=== PATIENT | male | born 1970 | race Caucasian/White ===

== ENCOUNTER 2020-03-01 14:13 | Outpatient (REF) | payer OTHER, SELFPAY ==
[2020-03-01 15:27] LABS: Anion Gap 13 (12-20); Blood Urea Nitrogen 16 mg/dL (9-16); Calcium 9.9 mg/dL (8.4-10.2); Carbon Dioxide 28 mmol/L (22-29); Chloride 106 mmol/L (96-108); Estimated Glomerular Filt Rate > 60; Glucose Random 87 mg/dL (60-115); Potassium 4.8 mmol/l (3.3-5.1); Sodium 142 mmol/L (135-145)
[2020-03-01 15:48] LABS: Erythrocyte Sedimentation Rate 5 MM/HR (0-15)
[2020-03-02 20:17] LABS: Lyme Abs Screen <0.90 index
[2020-03-03 13:11] LABS: Anti Nuclear Antibody Screen NEGATIVE (NEGATIVE)
== END 2020-03-01 14:14 | disposition home or self-care (01) ==
LOC: HO.LAB 14:13
PROVIDERS: Visit Provider Psychiatry & Neurology Neurology
DX: G71.00 Muscular dystrophy, unspecified (principal)
CPT/HCPCS: 36415; 80048; 82550; 85652; 86038; 86039; 86618

== ENCOUNTER → 2020-04-19 12:08 | Outpatient (REF) | payer OTHER, SELFPAY ==
--- NOTE | 2020-04-19 12:16 | CA_ITS ---
Transthoracic Echocardiogram Patient (Last, First, Middle): Usha Campos, Gender: Male Date of : 1970 Age: 49 Procedure Date: 04/19/2020 Procedure Type: Transthoracic Echocardiogram Location: OP Height: 182.88 cm Weight: 101.61 kg BSA: 2.24 m2 Heart Rate: bpm BP: 130 / 70 mmHg Refrigerating Machine Operator: Fabby MD: Petey Anderson MD Outpatient Scheduler: Gregory Bennett MD Symptoms: MYOTONIC MUSCULAR DYSTOPHY Study Quality: Good ECG Rhythm: Sinus Conclusions: - Essentially normal study Findings Left Ventricle Normal left ventricular size, thickness, and systolic function. The visually estimated ejection fraction is between 65-70%. Diastolic function is normal for age. Right Ventricle Normal right ventricular cavity size and systolic function. Atria Both atria are normal in size. There is no evidence of interatrial shunt. Aortic Valve Normal aortic valve structure and function. There is no aortic valve stenosis. There is no aortic valve regurgitation. Mitral Valve Normal mitral valve structure and function. There is trace mitral valve regurgitation. There is no mitral valve stenosis. Pulmonic Valve Normal pulmonic valve structure and function. There is trace pulmonic valve regurgitation. Tricuspid Valve Normal tricuspid valve structure. There is trace tricuspid valve regurgitation. The right ventricular systolic pressure is normal. The right ventricular systolic pressure is 37 mmHg. Normal right atrial pressure. There is no evidence of pulmonary hypertension. Great Vessels All visible segments of the aorta are normal in size. The pulmonary artery was not well visualized. Venous The inferior vena cava is normal in size and collapses greater than 50% with inspiration. Pericardium/Pleural There is no evidence of pericardial effusion. Prior Study Comparison No prior study available for comparison. Measurements 2D Linear Measurements RVIDd: 2.94 RVIDd Index: 1.31 IVSd: 0.90 0.6-0.9/0.6-1.0 cm LVIDd: 4.89 3.9-5.3/4.2-5.9 cm LVIDd Index: 2.18 2.4-3.2/2.2-3.1 cm/m2 LVIDs: 3.01 2.0-3.6 cm LVPWd: 1.23 0.7-1.1 cm Ao Root: 3.10 2.1-3.5 cm LA Diam: 3.60 2.7-3.8/3.0-4.0 cm LAIDs Index: 1.61 1.5-2.3 cm/m2 LV Mass: 238.03 67-162/88-224 g LV Mass Index: 106.26 43-95/49-115 g/m2 LVOT Diam: 2.40 3.0+(-)1.3 cm 2D Systolic Function EF 4C: 58.90 >55% EF 2C: 83.20 >55% EF BiP: 75.60 >55% Mitral Valve MV Pk E: 0.75 MV PK A: 0.53 MV Decel Time: 220.00 E/A: 1.40 E'Lateral: 9.46 E'Medial: 6.31 E/E' Med: 11.80 E/E' Lat: 7.90 Aortic Valve AoV Pk Kenneth: 1.23 AoV Mn Kenneth: 0.92 AoV VTI: 0.21 AoV Pk Grad: 6.00 Aov Mn Grad: 4.00 ARIANNA Cont.VTI: 5.05 LVOT LVOT Pk Kenneth: 0.98 LVOT Mn Kenneth: 0.73 LVOT VTI: 0.24 LVOT Pk Grad: 4.00 LVOT Mn Grad: 2.00 LVOT Diam: 2.40 LVOT Area: 4.52 Diastolic Function MV Pk E: 0.75 MV Pk A: 0.53 E/A: 1.40 E'Medial: 6.31 E/E' Med: 11.80 E' Laterial: 9.46 E/E' Lat: 7.90 Tricuspid Valve TR Pk Kenneth: 2.93 TR Pk Grad: 34.00 RA Press: 3.00 RVSP: 37.00 Great Vessels Aorta Ao Root-2D: 3.10 2.0-3.7 cm Ao Asc: 3.10 2.1-3.4 cm Ao Arch: 2.80 Updated in Other Vendor System with Status of Final Gregory Bennett MD electronically signed on 04/20/2020 4:30:50 PM with status of Final
== END ==
LOC: HO.CARD 12:08
PROVIDERS: Visit Provider Psychiatry & Neurology Neurology
DX: G71.11 Myotonic muscular dystrophy (principal)
CPT/HCPCS: 93306

== ENCOUNTER 2020-04-26 14:57 | Outpatient (REF) | payer OTHER, SELFPAY ==
[2020-04-26 15:23] LABS: MANUAL DIFF FLAG NO
[2020-04-26 15:37] LABS: Basophils Absolute Auto 0.1 X10*3/uL (0.0-0.2); Basophils Percent Auto 0.6 % (0-2); Eosinophils Absolute Auto 0.1 X10*3/uL (0.0-0.4); Hematocrit 53.3 % (42-52); Hemoglobin 16.7 g/dl (14.0-18.0); Imm Gran Abs Auto 0.03 X10*3/uL (0.00-0.03); Imm Gran Pct Auto 0.4 % (0.0-0.4); Lymphocytes Percent Auto 25.3 % (20-40); Mean Corpuscular HGB Conc 31.3 g/dl (31.0-36.0); Mean Corpuscular Hemoglobin 30.8 pg (27.0-33.0); Mean Corpuscular Volume 98.3 fL (80-98); Mean Platelet Volume 8.7 fL (9.4-12.4); Monocytes Absolute Auto 0.6 X10*3/uL (0.1-1.2); Monocytes Percent Auto 8.1 % (2-11); Neutrophils Percent Auto 64.6 % (45-73); Platelet Count 191 X10*3/uL (160-400); Red Blood Count 5.42 X10*6/uL (4.60-5.80); Red Cell Distribution Width 13.8 % (11.0-16.0); White Blood Count 7.7 X10*3/uL (4.8-10.8)
[2020-04-26 15:58] LABS: Alanine Aminotransferase 63 U/L (0-40); Albumin Level 4.4 g/dL (3.5-5.0); Alkaline Phosphatase 57 U/L (39-117); Anion Gap 14 (12-20); Aspartate Amino Transferase 42 U/L (5-37); Bilirubin Total 0.7 mg/dL (0.0-1.0); Blood Urea Nitrogen 12 mg/dL (9-16); C Reactive Protein 0.47 mg/dL (< or = 0.50); Calcium 9.5 mg/dL (8.4-10.2); Carbon Dioxide 29 mmol/L (22-29); Chloride 106 mmol/L (96-108); Cholesterol 245 mg/dL; Estimated Glomerular Filt Rate > 60; Glucose Random 87 mg/dL (60-115); Potassium 4.9 mmol/l (3.3-5.1); Sodium 144 mmol/L (135-145); Total Protein 6.6 g/dL (6.5-8.0)
[2020-04-26 16:12] LABS: Rheumatoid Factor < 15.0 IU/mL (<15.0)
[2020-04-26 16:15] LABS: Free T4 (Free Thyroxine) 0.96 ng/dL (0.71-1.85); Prostate Specific Antigen Scr 0.54 ng/mL (<0.05-4.0); Thyroid Stimulating Hormone 0.77 uIU/mL (0.32-4.0); Vitamin D 25-OH Total 29.4 ng/mL (>30)
[2020-04-26 16:19] LABS: Vitamin B12 663 pg/mL (200-900)
[2020-04-27 13:53] LABS: Anti Nuclear Antibody Screen NEGATIVE (NEGATIVE)
== END 2020-04-26 14:58 | disposition home or self-care (01) ==
LOC: HO.LAB 14:57
PROVIDERS: PCP Internal Medicine; Visit Provider Internal Medicine
DX: Z00.00 Encounter for general adult medical examination without abnormal findings (principal); Z13.220 Encounter for screening for lipoid disorders; Z13.29 Encounter for screening for other suspected endocrine disorder; Z12.5 Encounter for screening for malignant neoplasm of prostate
CPT/HCPCS: 36415; 80053; 82306; 82465; 82550; 82607; 84153; 84439; 84443; 85025; 86038; 86039; 86140; 86431

== ENCOUNTER 2020-10-04 07:14 | Outpatient (REF) | payer OTHER, SELFPAY ==
[2020-10-04 08:40] LABS: MANUAL DIFF FLAG NO
[2020-10-04 08:44] LABS: Basophils Percent Auto 0.6 % (0-2); Eosinophils Absolute Auto 0.1 X10*3/uL (0.0-0.4); Eosinophils Percent Auto 1.5 % (0-4); Hematocrit 53.4 % (42-52); Hemoglobin 17.1 g/dl (14.0-18.0); Imm Gran Abs Auto 0.02 X10*3/uL (0.00-0.03); Imm Gran Pct Auto 0.3 % (0.0-0.4); Lymphocytes Absolute Auto 1.9 X10*3/uL (1.2-4.9); Mean Corpuscular Hemoglobin 31.1 pg (27.0-33.0); Mean Corpuscular Volume 97.1 fL (80-98); Mean Platelet Volume 8.6 fL (9.4-12.4); Monocytes Absolute Auto 0.5 X10*3/uL (0.1-1.2); Monocytes Percent Auto 8.1 % (2-11); Neutrophils Percent Auto 60.5 % (45-73); Platelet Count 204 X10*3/uL (160-400); Red Cell Distribution Width 13.4 % (11.0-16.0); White Blood Count 6.6 X10*3/uL (4.8-10.8)
[2020-10-04 09:04] LABS: Alanine Aminotransferase 69 U/L (0-40); Albumin Level 4.3 g/dL (3.5-5.0); Alkaline Phosphatase 54 U/L (39-117); Anion Gap 14 (12-20); Aspartate Amino Transferase 50 U/L (5-37); Bilirubin Total 0.7 mg/dL (0.0-1.0); Blood Urea Nitrogen 17 mg/dL (9-16); Carbon Dioxide 29 mmol/L (22-29); Chloride 105 mmol/L (96-108); Estimated Glomerular Filt Rate > 60; Glucose Random 90 mg/dL (60-115); Potassium 4.3 mmol/L (3.3-5.1); Sodium 144 mmol/L (135-145); Total Protein 6.1 g/dL (6.5-8.0)
[2020-10-04 14:20] LABS: Cholesterol 251 mg/dL; HDL Cholesterol 47 mg/dL; LDL Cholesterol Calculated 153 mg/dl; Triglycerides 257 mg/dL
== END 2020-10-04 07:15 | disposition home or self-care (01) ==
LOC: HO.LAB 07:14
PROVIDERS: PCP Internal Medicine; Visit Provider Internal Medicine
DX: E78.00 Pure hypercholesterolemia, unspecified (principal); I10 Essential (primary) hypertension; R79.89 Other specified abnormal findings of blood chemistry
CPT/HCPCS: 36415; 80053; 80061; 85025

== ENCOUNTER 2021-01-31 06:39 | Outpatient (REF) | payer OTHER, SELFPAY ==
[2021-01-31 09:18] LABS: Alanine Aminotransferase 45 U/L (0-40); Albumin Level 4.3 g/dL (3.5-5.0); Alkaline Phosphatase 64 U/L (39-117); Anion Gap 11 (12-20); Aspartate Amino Transferase 38 U/L (5-37); Bilirubin Total 0.9 mg/dL (0.0-1.0); Blood Urea Nitrogen 15 mg/dL (9-16); C Reactive Protein 0.75 mg/dL (< or = 0.50); Calcium 9.7 mg/dL (8.4-10.2); Carbon Dioxide 29 mmol/L (22-29); Chloride 109 mmol/L (96-108); Cholesterol 227 mg/dL; Estimated Glomerular Filt Rate > 60; Glucose Fasting 86 mg/dL (60-99); HDL Cholesterol 47 mg/dL; LDL Cholesterol Calculated 143 mg/dl; Potassium 4.6 mmol/L (3.3-5.1); Sodium 144 mmol/L (135-145); Total Protein 6.5 g/dL (6.5-8.0); Triglycerides 186 mg/dL
== END 2021-01-31 06:40 | disposition home or self-care (01) ==
LOC: HO.LAB 06:39
PROVIDERS: PCP Internal Medicine; Visit Provider Internal Medicine
DX: E78.00 Pure hypercholesterolemia, unspecified (principal); D64.9 Anemia, unspecified; G71.00 Muscular dystrophy, unspecified
CPT/HCPCS: 36415; 80053; 80061; 82550; 84153; 86140

== ENCOUNTER 2021-05-02 07:07 | Outpatient (REF) | payer OTHER, SELFPAY ==
--- NOTE | ~2021-05-02 | XR_ITS ---
EXAMINATION: XR CHEST CLINICAL INFORMATION: Dyspnea COMPARISON: None TECHNIQUE: 2 views of the chest were obtained. FINDINGS: The cardiac and mediastinal contours are normal. The lung volumes are low. There is slight elevation of the right hemidiaphragm. There is question of bronchial wall thickening at both lung bases. There is bilateral subsegmental atelectasis. There is question of a small right base pneumonia. There is no pleural effusion or pneumothorax. Bony structures are unremarkable. XR/XR chest 2V IMPRESSION: Low lung volumes and bronchial wall thickening. Question small right base pneumonia.
== END 2021-05-02 07:08 | disposition home or self-care (01) ==
LOC: HO.XRAY 07:07
PROVIDERS: PCP Internal Medicine; Visit Provider Psychiatry & Neurology Neurology
DX: R06.00 Dyspnea, unspecified (principal); G71.11 Myotonic muscular dystrophy
CPT/HCPCS: 71046

== ENCOUNTER 2021-09-05 15:26 | Outpatient (REF) | payer OTHER, SELFPAY ==
[2021-09-05 15:40] LABS: MANUAL DIFF FLAG NO
[2021-09-05 16:20] LABS: Basophils Percent Auto 0.4 % (0-2); Eosinophils Absolute Auto 0.1 X10*3/uL (0.0-0.4); Eosinophils Percent Auto 1.1 % (0-4); Hematocrit 52.2 % (42.0-52.0); Hemoglobin 16.2 g/dl (14.0-18.0); Imm Gran Abs Auto 0.02 X10*3/uL (0.00-0.03); Imm Gran Pct Auto 0.3 % (0.0-0.4); Lymphocytes Absolute Auto 1.8 X10*3/uL (1.2-4.9); Lymphocytes Percent Auto 23.1 % (20-40); Mean Corpuscular Hemoglobin 29.9 pg (27.0-33.0); Mean Corpuscular Volume 96.3 fL (80.0-98.0); Mean Platelet Volume 8.8 fL (9.4-12.4); Monocytes Absolute Auto 0.6 X10*3/uL (0.1-1.2); Monocytes Percent Auto 7.5 % (2-11); Neutrophils Absolute Auto 5.1 x10*3/uL (2.0-8.3); Neutrophils Percent Auto 67.6 % (45-73); Platelet Count 172 X10*3/uL (160-400); Red Blood Count 5.42 X10*6/uL (4.60-5.80); Red Cell Distribution Width 13.6 % (11.0-16.0); White Blood Count 7.6 X10*3/uL (4.8-10.8)
[2021-09-05 16:45] LABS: Alanine Aminotransferase 45 U/L (0-40); Albumin Level 4.1 g/dL (3.5-5.0); Alkaline Phosphatase 59 U/L (39-117); Anion Gap 11 (12-20); Aspartate Amino Transferase 34 U/L (5-37); Bilirubin Total 0.8 mg/dL (0.0-1.0); Blood Urea Nitrogen 12 mg/dL (9-16); C Reactive Protein 0.61 mg/dL (< or = 0.50); Carbon Dioxide 32 mmol/L (22-29); Chloride 106 mmol/L (96-108); Cholesterol 254 mg/dL; Estimated Glomerular Filt Rate > 60; Glucose Random 74 mg/dL (60-115); Magnesium 2.1 mg/dL (1.6-2.6); Potassium 4.6 mmol/L (3.3-5.1); Sodium 144 mmol/L (135-145); Total Protein 6.2 g/dL (6.5-8.0)
== END 2021-09-05 15:27 | disposition home or self-care (01) ==
LOC: HO.LAB 15:26
PROVIDERS: PCP Internal Medicine; Visit Provider Internal Medicine
DX: R79.89 Other specified abnormal findings of blood chemistry (principal); G47.33 Obstructive sleep apnea (adult) (pediatric); E78.00 Pure hypercholesterolemia, unspecified; G71.00 Muscular dystrophy, unspecified
CPT/HCPCS: 36415; 80053; 82465; 82550; 83735; 85025; 86140

== ENCOUNTER 2021-10-11 07:28 | Outpatient (REF) | payer OTHER, SELFPAY ==
[2021-10-11 08:46] LABS: Cholesterol 218 mg/dL; HDL Cholesterol 45 mg/dL; LDL Cholesterol Calculated 140 mg/dl; Triglycerides 165 mg/dL
[2021-10-15 13:41] LABS: Calcium (PTHI) 9.6 mg/dL (8.6-10.3); PTHI 41 pg/mL (16-77)
== END 2021-10-11 07:29 | disposition home or self-care (01) ==
LOC: HO.LAB 07:28
PROVIDERS: PCP Internal Medicine; Visit Provider Internal Medicine
DX: E78.00 Pure hypercholesterolemia, unspecified (principal); E83.52 Hypercalcemia
CPT/HCPCS: 36415; 80061; 83970

== ENCOUNTER 2021-11-19 08:54 | Outpatient (REF) | payer OTHER, SELFPAY ==
[2021-11-19 10:31] LABS: Cholesterol 227 mg/dL; HDL Cholesterol 47 mg/dL; LDL Cholesterol Calculated 135 mg/dl; Triglycerides 228 mg/dL
== END 2021-11-19 08:55 | disposition home or self-care (01) ==
LOC: HO.LAB 08:54
PROVIDERS: PCP Internal Medicine; Visit Provider Internal Medicine
DX: E78.00 Pure hypercholesterolemia, unspecified (principal)
CPT/HCPCS: 36415; 80061

== ENCOUNTER 2022-01-18 07:52 | Outpatient (REF) | payer OTHER, SELFPAY ==
[2022-01-18 10:00] LABS: Cholesterol 218 mg/dL; HDL Cholesterol 46 mg/dL; LDL Cholesterol Calculated 147 mg/dl; Triglycerides 126 mg/dL
== END 2022-01-18 07:53 | disposition home or self-care (01) ==
LOC: HO.LAB 07:52
PROVIDERS: PCP Internal Medicine; Visit Provider Internal Medicine
DX: E78.00 Pure hypercholesterolemia, unspecified (principal)
CPT/HCPCS: 36415; 80061

== ENCOUNTER 2022-05-14 09:37 | Outpatient (REF) | payer OTHER, SELFPAY ==
[2022-05-14 10:34] LABS: Anion Gap 13 (12-20); Blood Urea Nitrogen 14 mg/dL (9-16); Calcium 9.9 mg/dL (8.4-10.2); Carbon Dioxide 27 mmol/L (22-29); Chloride 108 mmol/L (96-108); Estimated Glomerular Filt Rate > 60; Glucose Random 94 mg/dL (60-115); Potassium 4.1 mmol/L (3.3-5.1); Sodium 144 mmol/L (135-145)
[2022-05-14 10:38] LABS: Alanine Aminotransferase 96 U/L (0-40); Aspartate Amino Transferase 48 U/L (5-37)
[2022-05-14 10:40] LABS: ABG Refer to POC result
[2022-05-14 10:41] LABS: ABG pCO2 35 mmHg (32-45); ABG pH 7.39 (7.35-7.45); ABG pO2 91 mmHg (83-108)
[2022-05-14 10:42] LABS: ABG Base Excess -1.9 mmol/L; ABG HCO3 22 mmol/L (22-26)
== END 2022-05-14 09:38 | disposition home or self-care (01) ==
LOC: HO.LAB 09:37
PROVIDERS: Internal Medicine Pulmonary Disease; PCP Internal Medicine; Visit Provider Internal Medicine
DX: G71.00 Muscular dystrophy, unspecified (principal); E78.00 Pure hypercholesterolemia, unspecified
CPT/HCPCS: 36415; 80048; 82550; 82803; 84450; 84460

== ENCOUNTER 2022-07-09 13:55 | Outpatient (REF) | payer OTHER, SELFPAY ==
--- NOTE | 2022-07-09 14:00 | PFT_ITS ---
FLOWS: FEV1 46% of predicted at 1.75 L. FVC 42% of predicted at 2.06 L. FEV1 to FVC ratio 0.85. No bronchodilator response. LUNG VOLUMES: Total lung capacity 57% of predicted at 3.90 L. Residual volume 90% of predicted at 1.84 L. Slow vital capacity 43% of predicted at 2.06 L. Expiratory reserve volume 17% of predicted at 0.25 L. Diffusion capacity is moderately decreased, diffusion capacity corrects to normal after adjustment for alveolar ventilation. IMPRESSION: Severe restrictive ventilatory defect with no bronchodilator response. Decreased expiratory reserve volume suggests extrathoracic restriction, likely secondary to abdominal obesity. Aren Michael MD AP/MODL / [id number]
== END 2022-07-09 13:56 | disposition home or self-care (01) ==
LOC: HO.RESP 13:55
PROVIDERS: PCP Internal Medicine; Visit Provider Internal Medicine Pulmonary Disease
DX: G71.00 Muscular dystrophy, unspecified (principal)
CPT/HCPCS: 94060; 94727; 94729

== ENCOUNTER 2022-08-20 07:56 | Outpatient (REF) | payer OTHER, SELFPAY ==
[2022-08-20 08:09] LABS: MANUAL DIFF FLAG NO
[2022-08-20 08:33] LABS: Basophils Absolute Auto 0.1 X10*3/uL (0.0-0.2); Basophils Percent Auto 0.6 % (0-2); Eosinophils Absolute Auto 0.2 X10*3/uL (0.0-0.4); Eosinophils Percent Auto 1.9 % (0-4); Hematocrit 50.7 % (42.0-52.0); Imm Gran Abs Auto 0.03 X10*3/uL (0.00-0.03); Imm Gran Pct Auto 0.4 % (0.0-0.4); Lymphocytes Absolute Auto 1.4 X10*3/uL (1.2-4.9); Lymphocytes Percent Auto 18.5 % (20-40); Mean Corpuscular HGB Conc 31.6 g/dl (31.0-36.0); Mean Corpuscular Hemoglobin 30.8 pg (27.0-33.0); Mean Corpuscular Volume 97.7 fL (80.0-98.0); Monocytes Absolute Auto 0.6 X10*3/uL (0.1-1.2); Monocytes Percent Auto 7.7 % (2-11); Neutrophils Absolute Auto 5.5 x10*3/uL (2.0-8.3); Neutrophils Percent Auto 70.9 % (45-73); Platelet Count 179 X10*3/uL (160-400); Red Blood Count 5.19 X10*6/uL (4.60-5.80); Red Cell Distribution Width 13.7 % (11.0-16.0); White Blood Count 7.8 X10*3/uL (4.8-10.8)
[2022-08-20 09:08] LABS: Alanine Aminotransferase 45 U/L (0-40); Alkaline Phosphatase 65 U/L (39-117); Anion Gap 14 (12-20); Aspartate Amino Transferase 34 U/L (5-37); Bilirubin Total 0.7 mg/dL (0.0-1.0); Blood Urea Nitrogen 10 mg/dL (9-16); Calcium 9.5 mg/dL (8.4-10.2); Carbon Dioxide 28 mmol/L (22-29); Chloride 109 mmol/L (96-108); Cholesterol 254 mg/dL; Estimated Glomerular Filt Rate > 60; Glucose Fasting 86 mg/dL (60-99); HDL Cholesterol 48 mg/dL; LDL Cholesterol Calculated 166 mg/dl; Potassium 4.5 mmol/L (3.3-5.1); Sodium 146 mmol/L (135-145); Triglycerides 201 mg/dL
== END 2022-08-20 07:57 | disposition home or self-care (01) ==
LOC: HO.LAB 07:56
PROVIDERS: PCP Internal Medicine; Visit Provider Internal Medicine
DX: E78.00 Pure hypercholesterolemia, unspecified (principal); J45.909 Unspecified asthma, uncomplicated; R79.89 Other specified abnormal findings of blood chemistry
CPT/HCPCS: 36415; 80053; 80061; 85025

== ENCOUNTER → 2022-09-24 14:44 | Outpatient (BNVA) | payer OTHER, SELFPAY | PROVIDERS: PCP Internal Medicine; Visit Provider Internal Medicine Pulmonary Disease ==

== ENCOUNTER 2023-03-25 13:39 | Outpatient (AMB) | payer OTHER, SELFPAY ==
[2023-03-25 13:40] VITALS: BP 122/66; PULSE 56; O2SAT 95; BMI 29.4
--- NOTE | 2023-03-25 13:40 | MHC.OFFVIS ---
Intake Vital Signs 03/25/23 13:40 Height 5 ft 11 in Weight 210 lb 8.663 oz BMI 29.4 BP 122/66 Blood Pressure Location Rt brachial Position Sitting Pulse 56 Pulse Source Doppler Pulse Oximetry (%) 95 Oxygen Delivery Method Room Air Intake Visit Reasons: Dyspnea Allergies No Known Allergies Allergy (Verified 03/25/23 13:46) HPI Dyspnea HPI Details 52-year-old gentleman, nonsmoker, followed for asthma, now on generic Advair and Spiriva.? Underlying diagnosis of muscular dystrophy type 1. He is FVC has been stable. He denies any recent exacerbations. [facility] Social History (Updated 03/25/23 @ 13:46 by Marylu Hoover [facility]) Patient Tobacco Use Status: Never used Tobacco Review of Systems Const Denies daytime sleepiness, Denies excessive sweating, Denies fatigue, Denies fever(s), Denies lethargy, Denies malaise, Denies night sweats, Denies snoring and Denies weight loss Eyes Denies blurry vision and Denies itchy eyes ENT Denies nasal congestion, Denies post nasal drip, Denies sinus pain, Denies sinus pressure and Denies other ( Thrush) Card Denies chest pain, Denies pedal edema, Denies dyspnea, Denies orthopnea and Denies paroxysmal nocturnal dyspnea Resp Denies cough, Denies hemoptysis, Denies excessive phlegm production, Denies dyspnea, Denies snoring and Denies wheezing GI Denies abdominal pain and Denies heartburn Musc Denies myalgias, Denies arthralgias and Denies joint swelling Skin/Breast Denies rash Neuro Denies memory loss and Denies seizure-like activity Psych Denies abnormal sleep pattern, Denies anxiety and Denies memory loss Endo Denies excessive sweating, Denies fatigue and Denies heat intolerance Migel/Lymph Denies easy bruising Aller/Immun Denies itchy eyes, Denies seasonal rhinorrhea and Denies wheezing Physical Exam Vital Signs: Last Vital Signs Pulse 56 03/25/23 13:40 BP 122/66 03/25/23 13:40 Pulse Ox 95 03/25/23 13:40 Oxygen Delivery Method Room Air 03/25/23 13:40 BMI result Body Mass Index 29.4 Const General: no acute distress and alert Nutritional Appearance: not obese Orientation/consciousness: Other orientation findings ( oriented) HEENT Head: Yes atraumatic Eyes General: appearance normal, both eyes and all related structures Sclerae: sclerae normal EOM: EOMs intact bilaterally Neck Neck: Yes supple Lymphatic: no lymphadenopathy noted Resp Effort & Inspection: normal respiratory effort and no use of accessory muscles Auscultation: clear to auscultation bilaterally Cardio Rate: regular rate Rhythm: regular rhythm Heart sounds: no gallops, no murmurs and no rubs Skin General skin exam: other ( warm) Extrem General: No clubbing, No cyanosis and No edema Assessment & Plan Assessment & Plan (1) Asthma: Code(s): J45.909 - Unspecified asthma, uncomplicated Plan: Well controlled on generic Advair and Spiriva. Continue current regimen. (2) Muscular dystrophy: Code(s): G71.00 - Muscular dystrophy, unspecified Plan: Stable FVC. Continue to monitor clinically. Coding Level of Care Code Est Pt Level 4 (63333) Diagnoses Asthma J45.909 Muscular dystrophy G71.00
== END 2023-03-25 14:23 | disposition home or self-care (01) ==
PROVIDERS: PCP Internal Medicine; Visit Provider Internal Medicine Pulmonary Disease
DX: J45.909 Unspecified asthma, uncomplicated (principal); G71.00 Muscular dystrophy, unspecified
CPT/HCPCS: 99214

== ENCOUNTER → 2023-03-25 13:39 | Outpatient (BNVA) | payer OTHER, SELFPAY | PROVIDERS: Visit Provider Internal Medicine Pulmonary Disease ==

== ENCOUNTER 2023-04-01 11:14 | Day surgery (SDC) | payer OTHER, SELFPAY ==
[2023-03-30 14:50] VITALS: BMI 29.4
--- NOTE | 2023-03-31 08:31 | P.CONAN_ITS ---
Documented by User: Joselin Hall NP 03/31/23 08:31 HPI - Anesthesia Eval Consult details Narrative: 52yo M for Colonoscopy PMFSH Active Problems Active Problems: All Active Problems (Updated 03/30/23 @ 14:49 by Tia Goel RN) Asthma (Acute) Muscular dystrophy (Acute) Past Medical History Medical History Muscular dystrophy Elevated cholesterol Asthma Surgical History Surgical History History of surgery on lower extremity Social History Social History Patient Tobacco Use Status: Never used Tobacco Second Hand Smoke Exposure: No Use of substances other than those prescribed or required for medical reasons: No Are you DNR?: No Advance Directives: No Advance Directives Information Provided: Yes Advance Directives on File: No Meds Allergies Allergy/AdvReac Type Severity Reaction Status Date / Time No Known Allergies Allergy Verified 03/25/23 13:46 Home Medications Medication Instructions Recorded Confirmed Last Taken Type pravastatin 10 mg tablet 10 mg PO BEDTIME 03/26/22 03/30/23 Unknown History tadalafil 5 mg tablet mg PO 03/26/22 Unknown History tiotropium bromide 1.25 2 puff inhalation DAILY 03/26/22 03/30/23 04/01/23 History mcg/actuation mist for inhalation (Spiriva Respimat) Exam Exam Date and Time: March 31, 2023 0831 Height,Weight and Vital Signs: Height 5 ft 11 in Weight 95.708 kg Assessment and Plan Assessment Anesthesia Assessment: Chart Reviewed Documented by User: Fawn Hernandez MD 04/01/23 14:31 HPI - Anesthesia Eval Consult details Narrative: 52yo M for Colonoscopy. H/o muscular dystrophy diagnosed in 2019. Sees Dr Schwarz.No cardiac or respiratory issues as per cardiology6 and Respiratory consults. Clumsiness with occasional falls. Last fall that he can remember was last year. Woke up March 16 with swelling of left side of face and head. Denies any falls. Went to work and was told by coworkers to have checked out. Was seen at [facility]- Questioned trauma which patient denied. CT head showed small right subdural hematomas and anterior falx hematoma and Left fronto- parietal subarachnoid hemorrhage. GCS 15. Repeat CT did not show any increase in bleeding and patient was discharged home. No issues since. Some headache when seen in ER but not since. No nausea or vomiting. Denies any loss of consciusness at any time. Interval Note: Swelling almost totally gone. No symptoms. Will proceed with Colonoscopy [facility] Past Medical History Medical History Muscular dystrophy Elevated cholesterol Asthma Family History Family history of problems with anesthesia: No Surgical History Surgical History History of surgery on lower extremity History of Problems with Anesthesia: No Social History Social History Patient Tobacco Use Status: Never used Tobacco Second Hand Smoke Exposure: No Use of substances other than those prescribed or required for medical reasons: No Are you DNR?: No Advance Directives: No Advance Directives Information Provided: Yes Advance Directives on File: No Meds Allergies Allergy/AdvReac Type Severity Reaction Status Date / Time No Known Allergies Allergy Verified 03/25/23 13:46 Home Medications Medication Instructions Recorded Confirmed Last Taken Type pravastatin 10 mg tablet 10 mg PO BEDTIME 03/26/22 03/30/23 Unknown History tadalafil 5 mg tablet mg PO 03/26/22 Unknown History tiotropium bromide 1.25 2 puff inhalation DAILY 03/26/22 03/30/23 04/01/23 History mcg/actuation mist for inhalation (Spiriva Respimat) Exam Height,Weight and Vital Signs: Height 5 ft 11 in Weight 95.708 kg Vital Signs Temp Pulse Resp BP Pulse Ox O2 Del Method 04/01/23 11:51 97.2 F 58 16 138/76 96 Room Air Airway Mallampati Class: II TM Dist: >3cm Neck ROM: Full Partial: Upper (Bridge fell out after a fall and could not be replaced) Loose/Missing/Broken Teeth: Yes (Missing teeth. Denies broken or loose teeth) Heart: RRR Lungs: CTAB. No wheezing Assessment and Plan Assessment Anesthesia Assessment: Anesthesia Plan Discussed Final Anesthetic Review Family History of Problems with Anesthesia: No History of Problems with Anesthesia: No NPO: Yes ASA Class: III Final Preanesthetic Review: No Changes in Pt Med Stat, Meds/Allgs Chart Reviewed, Consent Obtained/Reviewed and Anes Risks/Benef Reviewed Patient Risk: Intermediate Procedure Risk: Low Assessment/Block/Sedation in SS: Assess/Block/Sedation-SS Anesthetic Plan Anesthetic Plan: MAC: Disposition: Standard PACU
[2023-04-01 11:51] VITALS: BP 138/76; PULSE 58; RESP 16; TEMP 36.2; O2SAT 96
[2023-04-01] MEDS: Lactated Ringers 1,000 ML 100 ML IVCONT (12:50)
--- NOTE | 2023-04-01 12:51 | MHC.SHP ---
Pre-Procedural Eval Section A Date of Service: 04/01/23 The patient is an INPATIENT: No Changes since office visit: No Cold of Flu in the past 2 weeks, No New Medical Problems, No Changes in Medication and No Patient answered all questions The History & Physical has been completed within 30 days and I have reviewed it.: Yes Section B Chief Complaint: Encounter for screening for malignant neoplasm of Allergies: Allergies Allergy/AdvReac Type Severity Reaction Status Date / Time No Known Allergies Allergy Verified 03/25/23 13:46 Plan I have reviewed the history and physical and performed a pertinent physical examination on my patient. No changes have occurred unless specified. Time Spent With Patient Time: Total time managing care of this patient today ____ minutes.
--- NOTE | 2023-04-01 13:25 | PC.NURSE ---
patient stated he was seen a week ago in [place] [facility] [place]. Patient has bruising to upper left eye and left side of face. patient states having some discomfort to frontal part of head and neck. patient note seen by PCP after discharge from hospital. Records requested from [place]. Dr. Hernandez and Dr. Givens aware. awaiting records.
[2023-04-01 14:43] VITALS: BP 105/58; PULSE 47; RESP 18; TEMP 36.6; O2SAT 97
[2023-04-01 14:58] VITALS: BP 115/65; PULSE 48; RESP 24; O2SAT 97
[2023-04-01 15:07] VITALS: RESP 20; TEMP 36.6
--- NOTE | 2023-04-01 22:02 | OP_ITS ---
DATE OF SERVICE: 04/01/2023 SURGEON: Scott Givens MD INDICATIONS: Colon cancer screening. PREOPERATIVE DIAGNOSIS: POSTOPERATIVE DIAGNOSIS: PROCEDURE PERFORMED: Colonoscopy to the terminal ileum with biopsy and snare polypectomy. ESTIMATED BLOOD LOSS: COMPLICATIONS: ANESTHESIA: Monitored anesthesia care. ASSISTANTS: SPECIMENS: DESCRIPTION OF PROCEDURE: A history and physical was performed. The risks and benefits of the procedure were explained to the patient. Informed consent was obtained. The patient was placed in the left lateral decubitus position. A digital rectal exam was performed and was found to be normal. The Olympus pediatric video colonoscope was introduced into the rectum and advanced to the cecum. The cecum was identified by transillumination, palpation, and identification of ileocecal valve. Examination was performed. The scope was removed. He tolerated the procedure well and was returned to the recovery area in stable condition. FINDINGS: The terminal ileum was examined and appeared normal. The visualized colonic mucosa was normal. The quality of the prep was good. There was some stool coating the mucosa in a thin layer, which was washed and suctioned as best possible. In the cecum was a less than 5 mm polyp, which was removed with a biopsy forceps. In the right colon was a 10 mm polyp, which was removed with a hot snare and recovered via suction. No other polyps were identified. Retroflexed examination showed small internal hemorrhoids. IMPRESSION: Colon polyp. RECOMMENDATION: Follow up the biopsy results. MD CAROL ANN Ash/[place] / [id number]
== END 2023-04-01 15:39 | disposition home or self-care (01) ==
PROVIDERS: PCP Internal Medicine; Visit Provider Internal Medicine Gastroenterology
PROC: 0DJD8ZZ Inspection of Lower Intestinal Tract, Via Natural or Artificial Opening Endoscopic (ICD-10-PCS; CPT 45378; principal; 2023-04-01 13:00)
DX: Z12.11 Encounter for screening for malignant neoplasm of colon (principal); D12.0 Benign neoplasm of cecum; D12.2 Benign neoplasm of ascending colon; K64.8 Other hemorrhoids; K59.00 Constipation, unspecified; J45.909 Unspecified asthma, uncomplicated; E78.5 Hyperlipidemia, unspecified; G71.00 Muscular dystrophy, unspecified; Z98.890 Other specified postprocedural states; Z79.51 Long term (current) use of inhaled steroids; Z79.899 Other long term (current) drug therapy
CPT/HCPCS: 45385; 45380; 88305; J2704

== ENCOUNTER 2023-04-23 05:59 | Outpatient (REF) | payer OTHER, SELFPAY ==
[2023-04-23 06:17] LABS: MANUAL DIFF FLAG NO
[2023-04-23 07:45] LABS: Basophils Percent Auto 0.5 % (0-2); Eosinophils Absolute Auto 0.2 X10*3/uL (0.0-0.4); Eosinophils Percent Auto 2.7 % (0-4); Hematocrit 50.7 % (42.0-52.0); Hemoglobin 15.8 g/dl (14.0-18.0); Imm Gran Abs Auto 0.03 X10*3/uL (0.00-0.03); Imm Gran Pct Auto 0.5 % (0.0-0.4); Lymphocytes Absolute Auto 1.7 X10*3/uL (1.2-4.9); Lymphocytes Percent Auto 28.8 % (20-40); Mean Corpuscular HGB Conc 31.2 g/dl (31.0-36.0); Mean Corpuscular Hemoglobin 30.2 pg (27.0-33.0); Mean Corpuscular Volume 96.8 fL (80.0-98.0); Monocytes Absolute Auto 0.5 X10*3/uL (0.1-1.2); Monocytes Percent Auto 7.8 % (2-11); Neutrophils Absolute Auto 3.5 x10*3/uL (2.0-8.3); Neutrophils Percent Auto 59.7 % (45-73); Platelet Count 189 X10*3/uL (160-400); Red Blood Count 5.24 X10*6/uL (4.60-5.80); Red Cell Distribution Width 13.6 % (11.0-16.0); White Blood Count 5.9 X10*3/uL (4.8-10.8)
[2023-04-23 08:04] LABS: Alanine Aminotransferase 40 U/L (0-40); Albumin Level 3.9 g/dL (3.5-5.0); Alkaline Phosphatase 70 U/L (39-117); Anion Gap 11 (12-20); Aspartate Amino Transferase 32 U/L (5-37); Bilirubin Total 0.5 mg/dL (0.0-1.0); Blood Urea Nitrogen 13 mg/dL (9-16); Calcium 10.2 mg/dL (8.4-10.2); Carbon Dioxide 30 mmol/L (22-29); Chloride 112 mmol/L (96-108); Cholesterol 245 mg/dL (<200); Estimated Glomerular Filt Rate > 60; Glucose Random 88 mg/dL (60-115); HDL Cholesterol 49 mg/dL (>40); LDL Cholesterol Calculated 156 mg/dL (<100); Potassium 4.3 mmol/L (3.3-5.1); Sodium 149 mmol/L (135-145); Total Protein 6.3 g/dL (6.5-8.0); Triglycerides 204 mg/dL (<150)
[2023-04-23 08:14] LABS: Prostate Specific Antigen Scr 1.26 ng/mL (<0.05-4.0)
== END 2023-04-23 06:00 | disposition home or self-care (01) ==
LOC: HO.LAB 05:59
PROVIDERS: PCP Internal Medicine; Visit Provider Internal Medicine
DX: Z12.5 Encounter for screening for malignant neoplasm of prostate (principal); R79.89 Other specified abnormal findings of blood chemistry; E78.00 Pure hypercholesterolemia, unspecified; G71.00 Muscular dystrophy, unspecified
CPT/HCPCS: 36415; 80053; 80061; 84153; 85025